=== PATIENT | female | born 1975 | race Caucasian/White ===

== ENCOUNTER 2019-02-01 17:46 | Emergency (ER) | payer SELFPAY ==
[~2019-02-01] VITALS: Ht 165.1 cm; Wt 65.8 kg
[2019-02-01] MEDS ORDERED: CITA40TA22 PO (18:03)
--- NOTE | 2019-02-01 18:09 | NUR ---
PT IS A/OX4, WAS FOUND LAYING ON THE ER WAITING ROOM FLOOR. PT REPORTS THAT SHE EXPERIENCED A SYNCOPAL EPISODE ON FRIDAY NIGHT (FROM A STANDING POSITION) WHEN SHE SUBSEQUENTLY HIT HER HEAD ON THE PAVEMENT. THE FALL WAS UNWITNESSED, BUT BOYFRIEND REPORTS THAT HE HEARD THE SOUND OF HER HITTING THE GROUND. PER BOYFRIEND'S REPORT, PT HAD A LOC FOR A "FEW SECONDS". PT IS NOW REPORTING DIZZINESS THAT HAS BEEN CONTINUOUS SINCE THE SYNCOPAL EPISODE. PT IS EVIDENTLY UNSTABLE ON HER FEET AND NEEDED TWO-PERSON ASSIST TO GET THE PT INTO THE W/C. NO FACIAL DROOP NOTED, BILATERAL PERRLA, NO HEMILATERAL WEAKNESS, EQUAL SMILE, CLEAR SPEECH, BILATERAL HAND FARM IMPLEMENT MECHANIC EQUAL. VSS. PT DENIES C/P, SOB, N/V/D.
[2019-02-01] MEDS ORDERED: IV NORMAL SALINE 1000 ML BAG IV ONE (18:15)
[2019-02-01 18:28] LABS: BASOPHILS # (AUTO) 0.1 K/uL (0.0-8.0); BASOPHILS % (AUTO) 0.9 % (0.0-2.0); EOSINOPHILS # (AUTO) 0.1 K/uL (0.0-0.7); EOSINOPHILS % (AUTO) 1.2 % (0.0-7.0); HEMATOCRIT 42.3 % (31.2-41.9); HEMOGLOBIN 14.2 g/dL (10.9-14.3); LYMPHOCYTES # (AUTO) 2.1 K/uL (20.0-40.0); LYMPHOCYTES % (AUTO) 20.5 % (20.5-51.5); MEAN CORPUSCULAR HEMOGLOBIN 31.5 uug (24.7-32.8); MEAN CORPUSCULAR HGB CONC 34 g/dL (32.3-35.6); MEAN CORPUSCULAR VOLUME 93.5 fL (75.5-95.3); MONOCYTES # (AUTO) 0.7 K/uL (2.0-10.0); MONOCYTES % (AUTO) 6.6 % (0.0-11.0); NEUTROPHILS # (AUTO) 7.3 K/uL (1.8-8.9); NEUTROPHILS % (AUTO) 70.8 % (38.5-71.5); PLATELET COUNT (AUTO) 253 K/uL (179-408); RED BLOOD CELL COUNT(AUTO) 4.52 MIL/uL (3.63-4.92); WHITE BLOOD COUNT (AUTO) 10.3 K/uL (3.8-11.8)
[2019-02-01 18:34] LABS: CARBON DIOXIDE 21 mmol/L (21-32); CHLORIDE 104 mmol/L (98-107); CREATININE 1.1 mg/dL (0.6-1.3); GLUCOSE 101 mg/dL (74-106); POTASSIUM 3.6 mmol/L (3.5-5.1); UREA NITROGEN, BLOOD 14 mg/dL (7-18)
[2019-02-01 18:39] LABS: ETHANOL < 3 MG/DL (0-0)
[2019-02-01 18:40] LABS: ALANINE AMINOTRANSFERASE 32 U/L (14-59); ALKALINE PHOSPHATASE 98 U/L (50-136); ASPARTATE AMINOTRANSFERASE 34 U/L (15-37); BILIRUBIN,DIRECT 0.2 mg/dL (0.0-0.2); BILIRUBIN,TOTAL 0.8 mg/dL (0.2-1.0); TOTAL PROTEIN, SERUM 7.6 g/dL (6.4-8.2)
--- NOTE | 2019-02-01 18:58 | NUR ---
SHIFT REPORT GIVEN TO CRYSTAL Cowan RN.
--- NOTE | 2019-02-01 19:20 | NUR ---
PATIENT ABLE TO AMBULATE TO RESTROOM WITH STEADY GAIT. NO DISTRESS NOTED
--- NOTE | 2019-02-01 20:04 | NUR ---
IV removed. Catheter intact and site benign. Pressure and 4x4 gauze applied to site. No bleeding noted.
--- NOTE | 2019-02-01 20:06 | NUR ---
Patient discharged to home in stable conditon WITH GIRLFRIEND TAKING PATIENT HOME. Written and verbal after care instructions given. Patient verbalizes understanding of instructions. WALKED OUT OF ER WITH NO DISTRESS NOTED
[2019-02-01 20:07] VITALS: BP 125/77
[2019-02-01 20:09] LABS: *BILIRUBIN,URIN NEGATIVE (NEGATIVE); *BLOOD, URINE 1+ (NEGATIVE); *CLARITY,URINE CLEAR (CLEAR); *COLOR,URINE YELLOW (YELLOW); *KETONES,URINE NEGATIVE (NEGATIVE); *UROBILINOGEN,URINE 0.2 E.U./dl (NORMAL); LEUKOCYTE ESTERASE ,URINE NEGATIVE (NEGATIVE); NITRITE, URINE NEGATIVE (NEGATIVE); UGLUCOSE NEGATIVE (NEGATIVE)
[2019-02-01 20:19] LABS: *AMPHETAMINE, URINE POSITIVE (NEGATIVE); *BARBITURATE, URINE NEGATIVE (NEGATIVE); *CANNABINOID, URINE POSITIVE (NEGATIVE); *COCCAINE, URINE NEGATIVE (NEGATIVE); *OPIATE, URINE NEGATIVE (NEGATIVE); *PHENCYCLIDINE SCREEN,URINE NEGATIVE (NEGATIVE)
[2019-02-01 20:24] LABS: BACTERIA,URINE NONE SEEN /HPF (NONE SEEN); SQUAMOUS EPITHELIAL CELL,UR FEW /HPF (NONE SEEN); WBC,URINE 0-3 /HPF (0-3)
== END 2019-02-01 20:07 | disposition home or self-care (01) ==
LOC: ER 17:46
DX: F07.81 Postconcussional syndrome (principal); F41.9 Anxiety disorder, unspecified; F32.9 Major depressive disorder, single episode, unspecified; Z79.899 Other long term (current) drug therapy; W01.198A Fall on same level from slipping, tripping and stumbling with subsequent striking against other object, initial encounter; Y93.89 Activity, other specified; Y92.89 Other specified places as the place of occurrence of the external cause; Y99.8 Other external cause status
CPT/HCPCS: 36415; 70450; 80048; 80076; 80307; 81000; 81001; 84702; 85025; 93005; 96360; 99284; G0480; A4663; J7030